=== PATIENT | male | born 1960 | race Caucasian/White ===

== ENCOUNTER 2019-03-15 08:05 | Inpatient (IN) | payer OTHER ==
[2019-03-15] VITALS (14 sets, daily range): BP systolic 70–109
[~2019-03-15] VITALS: Ht 162.6 cm; Wt 73.9 kg
[2019-03-15] MEDS ORDERED: NACL 0.9% 1,000 ML IV ONE ×2 (08:15→10:15)
--- NOTE | 2019-03-15 08:25 | NUR ---
Patient to ER bed 1 to gown for evaluation. Side rails up. Report given to Sherry KHAN
--- NOTE | 2019-03-15 08:30 | NUR ---
ER at bedside examining patient.
--- NOTE | 2019-03-15 08:30 | NUR ---
Pt arrived by ambulance, hypotensive in field, received one bolus. Hx prsotate CA stage 4, nicolas catheter in place patent and draining. Pt AO4, RR even and unlabored on RA
--- NOTE | 2019-03-15 08:30 | NUR ---
Dr at bedside to assess
[2019-03-15] MEDS ORDERED: fentaNYL CITRATE/PF 100 MCG/2 ML AMP IVP ONE (08:45)
[2019-03-15 08:47] LABS: BASOPHILS % (AUTO) 0.5 % (0.0-2.0); EOSINOPHILS % (AUTO) 0.3 % (0.0-4.0); HEMOGLOBIN 7.4 g/dL (14.0-18.0); LYMPHOCYTES # (AUTO) 0.6 K/uL (1.0-5.5); LYMPHOCYTES % (AUTO) 7.4 % (20.5-51.5); MEAN CORPUSCULAR HEMOGLOBIN 31 pg (27-31); MEAN CORPUSCULAR HGB CONC 34 % (32-36); MEAN CORPUSCULAR VOLUME 91 fL (79.0-98.0); MONOCYTES # (AUTO) 0.4 K/uL (0.0-1.0); NEUTROPHILS # (AUTO) 7.5 K/uL (1.8-7.7); NEUTROPHILS % (AUTO) 86.8 % (40.0-70.0); RED CELL DISTRIBUTION WIDTH 15.4 % (9.0-15.0); WHITE BLOOD COUNT (AUTO) 8.7 K/uL (4.8-10.8)
[2019-03-15 08:51] LABS: CALCIUM 7.8 mg/dL (8.4-11.0); CREATININE 0.93 mg/dL (0.55-1.30); POTASSIUM 3.8 mmol/L (3.5-5.1)
[2019-03-15 08:57] LABS: HEMATOCRIT 21.9 % (36-54)
--- NOTE | 2019-03-15 09:00 | NUR ---
Patient transported to radiology via gurney, accompanied by radio equipment installer.
[2019-03-15 09:05] LABS: ALBUMIN 2.6 g/dL (3.4-4.8); TOTAL BILIRUBIN 0.6 mg/dL (0.0-1.0)
[2019-03-15 09:09] LABS: BILIRUBIN,URINE 1+ (NEGATIVE); BLOOD, URINE 2+ (NEGATIVE); CLARITY/URINE CLEAR (CLEAR); COLOR,URINE YELLOW (YELLOW); GLUCOSE,URINE NEGATIVE (NEGATIVE); KETONES,URINE NEGATIVE (NEGATIVE); LEUKOCYTE ESTERASE ,URINE TRACE (NEGATIVE); NITRITE, URINE NEGATIVE (NEGATIVE); PH,URINE 5.5 (5.0-8.0); PROTEIN URINE 1+ (NEGATIVE); UROBILINOGEN,URINE 0.2 (0.2-1.0)
[2019-03-15 09:10] LABS: BACTERIA,URINE MODERATE /HPF (None Seen); HYALINE CASTS, URINE 0-10 /LPF (None Seen); MUCUS,URINE 3+ /LPF (None Seen)
[2019-03-15 09:14] LABS: PLATELET COUNT (AUTO) 89 K/uL (130-430)
[2019-03-15] MEDS ORDERED: BACL10TA PO ×2 (09:58)
[2019-03-15] MEDS ORDERED: GABA-531 PO (09:58)
[2019-03-15] MEDS ORDERED: FAMO20TA8 PO (09:58)
[2019-03-15] MEDS ORDERED: SENN-278 PO (09:58)
[2019-03-15] MEDS ORDERED: TAMS-11 PO (09:58)
[2019-03-15] MEDS ORDERED: LISI40TA4 PO (09:58)
[2019-03-15] MEDS ORDERED: DOCU-144 PO (09:58)
--- NOTE | 2019-03-15 09:58 | NUR ---
Medication reconciliation completed with information provided by patient. Any prior medication reconciliation on file was reviewed and corrected.
--- NOTE | 2019-03-15 10:01 | NUR ---
2 L NS infused. Will conitnue to monitor BP.
[2019-03-15] MEDS ORDERED: cefTRIAXone 1 GM IVPB PREMIX 50 ML IV ONE (10:15)
--- NOTE | 2019-03-15 10:20 | NUR ---
Sepsis Protocol Patient received 3l of NS. Rocephin 1gm given.
[2019-03-15] MEDS ORDERED: NOREPINEPHRINE BITARTRATE 4 MG in NS 246 ML IV ONE (10:45)
[2019-03-15 11:14] LABS: PROTHROMBIN TIME > 100.0 SECS (9.5-12.5)
[2019-03-15 11:16] LABS: INR > 9.0 (0.80-1.20)
[2019-03-15] MEDS ORDERED: D5NS 500 ML IV SCH (11:30)
--- NOTE | 2019-03-15 12:07 | NUR ---
Levophed drip initiated at 4mcg/min. Current BP 83/38, map 59, HR 88. Pt will bged transferred to ICU bed 8.
--- NOTE | 2019-03-15 12:15 | NUR ---
Levophed drip increased to 6mcg/min bp 78/39, map 52
--- NOTE | 2019-03-15 12:20 | NUR ---
Patient will be admitted to care of Dr. Billingsley. Admitted to ICU unit. Will go to room 8. Belongings list completed. Complete and up to date summary report printed. Bedside report given to Feliz KHAN. IV is on the left hand 22g patient and infusing well.
--- NOTE | 2019-03-15 12:21 | NUR ---
ADMISSION NOTE Received patient from ER via kim, received report from Sherry KHAN. Patient admitted with diagnosis of Septic Shock. Patient oriented to hospital routine, call light, toileting and safety-patient verbalized understanding. Patient awake, alert and oriented. Patient on room air and saturating within normal limits, no acute signs of resp distress, no SOB, breathing even and unlabored. continue to monitor.
--- NOTE | 2019-03-15 12:50 | NUR ---
PAGED DR. REYES: PAGED DR. REYSE FOR ADMIT ORDERS. AWAITING FOR CALL BACK.
--- NOTE | 2019-03-15 14:15 | NUR ---
Called Dr. Lang with a consult, spoke with Seiln from doctors office
--- NOTE | 2019-03-15 14:29 | NUR ---
Called Dr. Clements with a consult, spoke with Delores from doctors office
[2019-03-15] MEDS ORDERED: HYDROCORTISONE SOD SUCC 100 MG/2 ML VIAL IVP ONE (14:45)
[2019-03-15] MEDS ORDERED: GABAPENTIN 300 MG CAPSULE PO ONE (14:45)
[2019-03-15] MEDS: BACLOFEN 10 MG TABLET PO SCH ×2 (14:50→21:15)
[2019-03-15] MEDS: D5NS 1,000 ML IV SCH (14:51)
[2019-03-15 15:22] LABS: TOTAL IRON BIND. CAPACITY 141 ug/dL (250-450)
[2019-03-15 16:15] LABS: BASOPHILS % (AUTO) 0.6 % (0.0-2.0); EOSINOPHILS % (AUTO) 0.1 % (0.0-4.0); LYMPHOCYTES # (AUTO) 0.9 K/uL (1.0-5.5); LYMPHOCYTES % (AUTO) 11.5 % (20.5-51.5); MEAN CORPUSCULAR HEMOGLOBIN 31 pg (27-31); MEAN CORPUSCULAR HGB CONC 34 % (32-36); MEAN CORPUSCULAR VOLUME 90 fL (79.0-98.0); MONOCYTES # (AUTO) 0.5 K/uL (0.0-1.0); MONOCYTES % (AUTO) 6.1 % (1.7-9.3); NEUTROPHILS # (AUTO) 6.2 K/uL (1.8-7.7); NEUTROPHILS % (AUTO) 81.7 % (40.0-70.0); PLATELET COUNT (AUTO) 92 K/uL (130-430); RED CELL DISTRIBUTION WIDTH 15.5 % (9.0-15.0); WHITE BLOOD COUNT (AUTO) 7.6 K/uL (4.8-10.8)
[2019-03-15] MEDS: PIPERACILLIN/TAZO 3.375/DEX-IS 50 ML IV SCH ×3 (16:38→23:43)
[2019-03-15 16:49] LABS: HEMATOCRIT 16.7 % (36-54); HEMOGLOBIN 5.8 g/dL (14.0-18.0); RED BLOOD CELL COUNT(AUTO) 1.85 MIL/uL (4.2-6.2)
[2019-03-15] MEDS: VANCOMYCIN HCL 750 MG in NS 250 ML IV SCH (17:58)
[2019-03-15] MEDS: NOREPINEPHRINE BITARTRATE 4 MG in D5W 246 ML IV PRN ×3 (18:16→23:42)
--- NOTE | 2019-03-15 18:53 | NUR ---
BT INITIATION: Consent signed per patient agreeing to administration of blood. Blood has been type and crossmatched. Blood sent from blood bank. Information on unit of blood checked against patient wristband at bedside by two nurses. All information matches. Patient or responsible republican informed of potential complications associated with blood transfusion. Informed of possible transfusion reaction symptoms. Aware of need to notify nurse at once of itching, shortness of breath, flushing, feeling of impending doom, or other symptoms not previously present. Vital signs taken within 5 minutes prior to initiation of transfusion. RN will remain with patient for first 15 minutes of transfusion at which time vital signs will be re-assessed. Pre-transfusion vital signs: temp-99.5, pulse -113, RR-22, BP - 94/53. 15mins after starting vital signs: temp: 98.7, pulse 122, RR-19, BP-95/55. denies pain, itching, and no redness noted.
--- NOTE | 2019-03-15 19:10 | NUR ---
OPENING NOTE RECIEVED SBAR REPORT FROM MI KHAN. ASSUMED CARE OF PATIENT.
--- NOTE | 2019-03-15 19:50 | NUR ---
ASSESSMENT PT ANO X4 LAYING IN BED. PT COOPERATIVE. PT ON ROOM AIR, O2 SATURATION 100%. LUNG SOUNDS CLEAR THROUGHOUT. PT SINUS TACH ON MONITOR. NO EDEMA NOTED. RADIAL AND PEDAL PULSES EQUAL AND STRONG. PT HAS LUE PICC LINE. PT HAS LEVOPHED DRIP RUNNING AT 24 MCG/MIN & D5/NS @ 150 ML/HR AND BLOOD TRANSFUSION (120 ML/HR) INFUSING. 2 UNITS ORDERED 1ST UNIT CURRENTLY INFUSING. PT TOLERATING BLOOD TRANSFUSION WELL. BOWEL SOUNDS ACTIVE. PT ON REGULAR DIET. APONTE CATHETER FLOWING TO GRAVITY IN PLACE. URINE CLEAR AND YELLOW. SKIN INTACT. FAMILY AT BEDSIDE. BED LOCKED IN LOWEST POSITION. CALL LIGHT WITHIN REACH. SAFETY PRECAUTIONS IN PLACE. WILL CONTINUE TO MONITOR.
[2019-03-15] MEDS: ACETAMINOPHEN 325 MG TABLET PO PRN (19:53)
[2019-03-15 21:00] LABS: PROTHROMBIN TIME 52.2 SECS (9.5-12.5)
--- NOTE | 2019-03-15 21:00 | NUR ---
RN UPDATE DRESSING CHANGED AT RIGHT AC. ACTIVE BLEEDING NOTED TO SITE. PRESSURE DRESSING APPLIED AND WILL CONTINUE TO MONITOR.
[2019-03-15] MEDS: HYDROCORTISONE SOD SUCC 100 MG/2 ML VIAL IVP SCH (21:16)
--- NOTE | 2019-03-15 21:28 | NUR ---
BLOOD TRANSFUSION 1 UNIT OF BLOOD INFUSED. PT TOLERATED TRANSFUSION WELL. NO SIGNS OR SYMPTOMS OF REACTION NOTED. WILL BEGIN 2ND UNIT ORDERED.
--- NOTE | 2019-03-15 21:46 | NUR ---
BT INITIATION: Consent signed per patient agreeing to administration of blood. Blood has been type and crossmatched. Blood sent from blood bank. Information on unit of blood checked against patient wristband at bedside by two nurses. All information matches. Patient or responsible libertarian informed of potential complications associated with blood transfusion. Informed of possible transfusion reaction symptoms. Aware of need to notify nurse at once of itching, shortness of breath, flushing, feeling of impending doom, or other symptoms not previously present. Vital signs taken within 5 minutes prior to initiation of transfusion. RN will remain with patient for first 15 minutes of transfusion at which time vital signs will be re-assessed.
--- NOTE | 2019-03-15 22:30 | NUR ---
ROSALIND FROM LAB. CALLED THAT THEY ARE UNABLE TO DO FIBRINOGEN BECAUSE THE READING IS HIGH AND OUR MACHINE CANT READ IT.WILL SEND IT OUT TO ANOTHER HOSP BUT HAD TO DRAW A FRESH SPECIMEN.WILL OBTAIN SPECIMEN AFTER THE BLOOD TRANSFUSION IS COMPLETED.
--- NOTE | 2019-03-15 23:00 | NUR ---
RN UPDATE PT BLEEDING FROM PICC LINE INSERTION SITE. PRESSURE DRESSING APPLIED. WILL CONTINUE TO MONITOR.
--- NOTE | 2019-03-15 23:48 | NUR ---
BLOOD TRANSFUSION 2 UNIT OF BLOOD INFUSION COMPLETE. NO SIGNS OR SYMPTOMS OF REACTION NOTED. PT TOLERATED INFUSION WELL. WILL CONTINUE TO MONITOR.
[2019-03-16] VITALS (24 sets, daily range): BP systolic 85–139
[2019-03-16] MEDS: D5NS 1,000 ML IV SCH ×2 (00:14→03:35)
[2019-03-16] MEDS ORDERED: NOREPINEPHRINE 4 MG/4 ML VIAL IV ONE ×3 (00:49→09:29)
[2019-03-16] MEDS: MORPHINE 2 MG/ML INJ. SYRINGE IVP PRN (01:07)
[2019-03-16] MEDS: NOREPINEPHRINE BITARTRATE 4 MG in D5W 246 ML IV PRN ×2 (02:08→06:10)
[2019-03-16] MEDS: MORPHINE 4 MG/ML INJ. SYRINGE IVP PRN ×2 (02:10→06:08)
--- NOTE | 2019-03-16 03:00 | NUR ---
RN UPDATE DRESSING SOILED. DRESSING CHANGED AT RIGHT AC. ACTIVE BLEEDING NOTED TO SITE. PRESSURE DRESSING APPLIED AND WILL CONTINUE TO MONITOR.
[2019-03-16] MEDS: VANCOMYCIN HCL 750 MG in NS 250 ML IV SCH ×2 (05:02→17:11)
[2019-03-16] MEDS: PIPERACILLIN/TAZO 3.375/DEX-IS 50 ML IV SCH ×4 (05:03→23:00)
[2019-03-16] MEDS: HYDROCORTISONE SOD SUCC 100 MG/2 ML VIAL IVP SCH ×3 (06:07→22:58)
[2019-03-16 06:19] LABS: BASOPHILS % (AUTO) 0.3 % (0.0-2.0); LYMPHOCYTES # (AUTO) 1.1 K/uL (1.0-5.5); LYMPHOCYTES % (AUTO) 11.6 % (20.5-51.5); MEAN CORPUSCULAR HEMOGLOBIN 30 pg (27-31); MEAN CORPUSCULAR HGB CONC 35 % (32-36); MEAN CORPUSCULAR VOLUME 88 fL (79.0-98.0); MONOCYTES # (AUTO) 0.5 K/uL (0.0-1.0); MONOCYTES % (AUTO) 5.7 % (1.7-9.3); NEUTROPHILS # (AUTO) 7.8 K/uL (1.8-7.7); NEUTROPHILS % (AUTO) 82.4 % (40.0-70.0); RED BLOOD CELL COUNT(AUTO) 2.18 MIL/uL (4.2-6.2); RED CELL DISTRIBUTION WIDTH 15.1 % (9.0-15.0); WHITE BLOOD COUNT (AUTO) 9.4 K/uL (4.8-10.8)
[2019-03-16 06:28] LABS: HEMATOCRIT 19.2 % (36-54); HEMOGLOBIN 6.6 g/dL (14.0-18.0)
--- NOTE | 2019-03-16 06:29 | NUR ---
DR. FLORIN VALENZUELA PAGED AT THIS TIME TO REPORT CRITICAL RESULTS. PER EXCHANGE DR. SHELDON IS NEWS DEPARTMENT INTERN. WILL AWAIT MD CALL BACK. SPOKE WITH LORENA.
[2019-03-16 06:40] LABS: ALBUMIN 2.1 g/dL (3.4-4.8); CREATININE 0.73 mg/dL (0.55-1.30); TOTAL BILIRUBIN 0.6 mg/dL (0.0-1.0)
[2019-03-16 06:56] LABS: INR 3.4 (0.80-1.20); PROTHROMBIN TIME 33.4 SECS (9.5-12.5)
--- NOTE | 2019-03-16 07:14 | NUR ---
MD BECKA VALENZUELA AT [facility] TO EVALUATE PATIENT. MADE AWARE OF CRITICAL LABS. ORDERS RECEIVED. ORDERS TO BE CARRIED OUT PER .
--- NOTE | 2019-03-16 07:24 | NUR ---
CLOSING NOTE SBAR REPORT GIVEN TO MARQUITA RN AND ANISA RN. PT IN NO APPARENT DISTRESS. CARE ENDORSED.
[2019-03-16 07:26] LABS: CALCIUM 6.8 mg/dL (8.4-11.0)
[2019-03-16] MEDS: GABAPENTIN 300 MG CAPSULE PO SCH (08:16)
[2019-03-16] MEDS: TAMSULOSIN HCL 0.4 MG CAP PO SCH (08:16)
[2019-03-16] MEDS: BACLOFEN 10 MG TABLET PO SCH ×3 (08:17→20:20)
--- NOTE | 2019-03-16 08:37 | NUR ---
AT 0710 A.M, RECEIVED NURSING REPORT FROM HORSE BREEDER SASKIA Araya AND JOHN Araya, AT 0713 A.M, SEE PATIENT, ORDERED GIVE BLOOD TRANSFUSION P-RBC 2 UNITS AND CRYOPRECIPITATE 10 UNITS TODAY, AT 0830 A.M, PAGE Dr. REYES REGARDING OF ORDER, ( B.S [phone] ) , WAITING FOR DOCTOR CALL BACK
[2019-03-16] MEDS ORDERED: NOREPINEPHRINE BITARTRATE 4 MG in NS 250 ML IV PRN (09:00)
[2019-03-16] MEDS ORDERED: NOREPINEPHRINE BITARTRATE 4 MG in NS 246 ML IV PRN (09:00)
--- NOTE | 2019-03-16 09:00 | NUR ---
AT 0900 A.M, SEE PATIENT, AND UPDATED PATIENT,S CONDITION AT BEDSIDE WITH PATIENT AND FAMILY (SISTER), ORDERED CHANGED IVF TO 0.9% NORMAL SALINE AT 100 ML/HOUR AND LEVOPHED DRIP 8 MG IN NORMAL SALINE , ON PHENYLEPHRINE DRIP NEED
[2019-03-16] MEDS ORDERED: COMMUNICATION ORDER XX ONE (09:15)
[2019-03-16] MEDS: NACL 0.9% 1,000 ML IV SCH ×2 (09:18→20:20)
[2019-03-16] MEDS: NOREPINEPHRINE BITARTRATE 8 MG in NS 242 ML IV PRN (09:21)
--- NOTE | 2019-03-16 09:41 | NUR ---
Nutrition Update Ugo Scale 16 noted. Pt admitted for septic shock. Diet: regular BMI: 28 kg/m2 RD to follow per nutrition care standards.
--- NOTE | 2019-03-16 10:20 | NUR ---
AT 1000 A.M, ORDERED FOLLOW UP 2D ECHO CARDIOGRAM, E.F 73 %
[2019-03-16 10:54] LABS: PLATELET COUNT (AUTO) 52 K/uL (130-430)
[2019-03-16] MEDS: ACETAMINOPHEN 325 MG TABLET PO PRN (11:13)
--- NOTE | 2019-03-16 12:00 | NUR ---
AT 1052A.M, START BLOOD TRANSFUSION CRYOPRECIPITATE FIRST 5 UNITS, AT 1150 A.M, FINISHED, NO S/S OF ADVERSE REACTION
--- NOTE | 2019-03-16 12:07 | NUR ---
AT 1155 A.M, START BLOOD TRANSFUSION CRYOPRECIPITATE SECOND 5 UNITS, NO S/S OF ADVERSE REACTION AT THIS TIME, PATIENT IS ALERT, ORIENTED X4, GIVE CLEAN ,COMFORTABLE SUPPORT ALL TIMES, RAILS UP ,CALL LIGHT IN REACH, KEEP CLOSE MONITOR
--- NOTE | 2019-03-16 13:26 | NUR ---
AT 1245 P.M, FINISHED BLOOD TRANSFUSION CRYOPRECIPITATE SECOND 5 UNITS, NO S/S OF ADVERSE REACTION, AT 1315 P.M, START BLOOD TRANSFUSION P-RBC FIRST UNIT, NO S/S OF ADVERSE REACTION AT THIS TIME, KEEP CLOSE MONITOR
--- NOTE | 2019-03-16 14:00 | NUR ---
TITRATING O2 DR POPE AWARE AND ACKNOWLEDGED CHANGES MADE ON O2 DELIVERY. PATIENT PLACED ON OXYMIZER 5 LITERS SINCE WAS NOT TOLERATING 4L WITH LOWER SATS OF 89%. DR POPE AGREED.
--- NOTE | 2019-03-16 15:20 | NUR ---
GIVE RIGHT A.C BLEEDING AREA DRESSING CHANGED, CHG BED BATH DONE
--- NOTE | 2019-03-16 16:40 | NUR ---
AT 1545 P.M, FINISHED BLOOD TRANSFUSION P-RBC FIRST UNIT, NO S/S OF ADVERSE REACTION
--- NOTE | 2019-03-16 16:41 | NUR ---
AT 1600 P.M, START BLOOD TRANSFUSION P-RBC SECOND UNIT, NO S/S OF ADVERSE REACTION, KEEP CLOSE MONITOR
[2019-03-16] MEDS ORDERED: PHENYLEPHRINE HCL 30 MG in NS 247 ML IV PRN (17:30)
--- NOTE | 2019-03-16 17:30 | NUR ---
Dietitian Recommendations * Recommend Regular diet with Ensure Enlive TID for optimal nutrition (Provides additional 1050 kcal/day and 60 gm of protein/day) * Encourage PO intake LP, RD Please refer to Nutrition Assessment for details. Signed: 03/16/19 at 1731 by Thais SANTAMARIA <Co-Signature Required> Co-Signed: 03/16/19 at [address] Addendum: 03/16/19 at 1732 by Thais SANTAMARIA Amended: Links added.
--- NOTE | 2019-03-16 18:51 | NUR ---
AT 1845 P.M, FINISHED BLOOD TRANSFUSION P-RBC SECOND UNIT, NO S/S OF ADVERSE REACTION, PATIENT IS ALERT, ORIENTED X4 COMFORTABLE REST ON THE BED AT THIS TIME, RAILS UP ,LEVOPHED DRIP TITRATED TO 8 MCG/MIN, CALL LIGHT IN REACH, KEEP CLOSE MONITOR
--- NOTE | 2019-03-16 19:14 | NUR ---
GIVE COMPLETE NURSING REPORT TO SCOREBOARD OPERATOR NIALL Araya
--- NOTE | 2019-03-16 19:45 | NUR ---
Opening Note Pt in bed AAO. SR on the monitor, on RA. No s/s of distress noted. Pt has MOISES PICC line in place running IVF and Levophed (double concentration) @8mcg/kg/min. BP stable at this time. IV site C/D/I. No s/s of infiltration noted. Pt has nicolas catheter in place draining urine to gravity. Pt has dressing to BROCK for earlier bleeding. No s/s of bleeding noted at this time. Bed locked in lowest position, call light in reach, and safety precautions in place. Daughter at bedside. Will continue to monitor.
--- NOTE | 2019-03-16 20:15 | NUR ---
BROCK dressing changed d/t bleeding at venipuncture site. Dressing wrapped, and no s/s of bleeding noted at this time. Will continue to monitor.
--- NOTE | 2019-03-16 23:05 | NUR ---
RN Round New pressure dressing applied to Pt BROCK. Current dressing saturated with blood from venipuncture site. Pt tolerated well. No s/s or c/o of pain. Levophed currently @12mcg/kg/min. Will continue to monitor.
[2019-03-17] VITALS (24 sets, daily range): BP systolic 85–138
[2019-03-17] MEDS: MORPHINE 2 MG/ML INJ. SYRINGE IVP PRN ×2 (00:39→05:58)
--- NOTE | 2019-03-17 03:08 | NUR ---
RN Rounds Pt in bed asleep. No s/s of distress noted. Levophed infusing @12mcg/kg/min. VSS. Will continue to monitor.
[2019-03-17] MEDS: VANCOMYCIN HCL 750 MG in NS 250 ML IV SCH ×2 (04:17→16:10)
--- NOTE | 2019-03-17 05:34 | NUR ---
RN Rounds Pt VSS. No s/s of distress noted. Pt able to make needs known. Will continue to monitor.
[2019-03-17] MEDS: NACL 0.9% 1,000 ML IV SCH ×2 (05:57→15:00)
[2019-03-17] MEDS: PIPERACILLIN/TAZO 3.375/DEX-IS 50 ML IV SCH ×4 (05:58→23:49)
[2019-03-17] MEDS: HYDROCORTISONE SOD SUCC 100 MG/2 ML VIAL IVP SCH ×3 (05:58→21:58)
[2019-03-17] MEDS: NOREPINEPHRINE BITARTRATE 8 MG in NS 242 ML IV PRN (05:59)
--- NOTE | 2019-03-17 06:51 | NUR ---
Closing Note Pt in bed AAO. ST on the monitor, on RA. No s/s of distress noted. Pt has IVF infusing and Levophed running at 12mcg/kg/min. No s/s of infiltration noted. Pt has nicolas catheter draining urine to gravity. No bleeding noted from BROCK venipuncture site. Dressing remains C/D/I. Bed locked in lowest position, call light in reach, and safety precautions in place. Will endorse to oncoming RN.
--- NOTE | 2019-03-17 07:07 | NUR ---
Endorsement Pt report given to oncoming RN at bedside via SBAR approach.
[2019-03-17 07:10] LABS: BASOPHILS % (AUTO) 0.1 % (0.0-2.0); EOSINOPHILS % (AUTO) 0.1 % (0.0-4.0); MEAN CORPUSCULAR HEMOGLOBIN 30 pg (27-31); MEAN CORPUSCULAR HGB CONC 35 % (32-36); MEAN CORPUSCULAR VOLUME 86 fL (79.0-98.0); MONOCYTES # (AUTO) 0.8 K/uL (0.0-1.0); MONOCYTES % (AUTO) 6.5 % (1.7-9.3); NEUTROPHILS # (AUTO) 10.7 K/uL (1.8-7.7); NEUTROPHILS % (AUTO) 85.3 % (40.0-70.0); RED CELL DISTRIBUTION WIDTH 14.9 % (9.0-15.0); WHITE BLOOD COUNT (AUTO) 12.5 K/uL (4.8-10.8)
--- NOTE | 2019-03-17 07:20 | NUR ---
AT 0707 A.M, RECEIVED NURSING REPORT FROM PROFILE GRINDERVIVEK TIERNEY R.N
[2019-03-17 07:26] LABS: RED BLOOD CELL COUNT(AUTO) 1.75 MIL/uL (4.2-6.2)
[2019-03-17 07:27] LABS: HEMOGLOBIN 5.2 g/dL (14.0-18.0); INR 3.2 (0.80-1.20)
[2019-03-17 07:28] LABS: HEMATOCRIT 15.1 % (36-54); PLATELET COUNT (AUTO) 34 K/uL (130-430)
[2019-03-17 07:31] LABS: PROTHROMBIN TIME 31.1 SECS (9.5-12.5)
[2019-03-17 07:32] LABS: CREATININE 0.51 mg/dL (0.55-1.30); POTASSIUM 3.6 mmol/L (3.5-5.1); TOTAL BILIRUBIN 0.9 mg/dL (0.0-1.0)
[2019-03-17 07:34] LABS: CALCIUM 6.7 mg/dL (8.4-11.0)
[2019-03-17] MEDS: GABAPENTIN 300 MG CAPSULE PO SCH (08:19)
[2019-03-17] MEDS: TAMSULOSIN HCL 0.4 MG CAP PO SCH (08:19)
[2019-03-17] MEDS: BACLOFEN 10 MG TABLET PO SCH ×3 (08:19→20:41)
[2019-03-17] MEDS ORDERED: PHYTONADIONE 10 MG/ML AMP SUBCUT ONE (09:15)
[2019-03-17] MEDS: ONDANSETRON HCL 4 MG/2 ML VIAL IVP PRN (09:23)
--- NOTE | 2019-03-17 09:30 | NUR ---
AT 0900 A.M, Dr. VAZQUEZ SEE PATIENT, ORDERED GIVE STAT VITS K 10 MG SUBQ X ONCE AND BLOOD TRANSFUSION 4 PACKS P-RBC AND 2 FRESH FROZEN PLASMA FOR H.b 5.2, Hct 15.1 ,PLATELET 34, PT 31.1, INR 3.2, PTT 42.6
[2019-03-17] MEDS ORDERED: PHYTONADIONE 10 MG/ML AMP ONE (09:55)
[2019-03-17] MEDS: METOCLOPRAMIDE HCL 10 MG/2 ML VIAL IVP PRN (11:21)
--- NOTE | 2019-03-17 13:20 | NUR ---
AT 1103 A.M, START BLOOD TRANSFUSION P-RBC FIRST UNIT, AND 1315 P.M FINISHED, NO S/S OF ADVERSE REACTION
[2019-03-17] MEDS ORDERED: FUROSEMIDE 40 MG/4 ML VIAL IVP ONE (15:00)
--- NOTE | 2019-03-17 15:34 | NUR ---
AT 1326 P.M START BLOOD TRANSFUSION P-RBC SECOND UNIT, AT 1505 P.M, FINISHED, NO S/S OF ADVERSE REACTION
[2019-03-17] MEDS: ACETAMINOPHEN 325 MG TABLET PO PRN (16:10)
--- NOTE | 2019-03-17 17:00 | NUR ---
AT 1525 P.M, START BLOOD TRANSFUSION P-RBC THIRD UNIT, AT 1655 P.M FINISHED, NO S/S OF ADVERSE REACTION
--- NOTE | 2019-03-17 17:37 | NUR ---
AT 1713 P.M, START BLOOD TRANSFUSION P-RBC FOURTH UNIT, NO S/S OF ADVERSE REACTION AT THIS TIME, PATIENT IS ALERT, ORIENTED X 4, SLEEPING NOW, CALL LIGHT IN REACH, KEEP CLEAN, COMFORTABLE SUPPORT ALL TIMES
--- NOTE | 2019-03-17 19:25 | NUR ---
AT 1925 P.M, FINISHED BLOOD TRANSFUSION P-RBC FOURTH UNIT, NO S/S OF ADVERSE REACTION, GIVE COMPLETE NURSING REPORT TO HOTEL ENGINEER JOANNE Araya
[2019-03-17 20:54] LABS: BASOPHILS % (AUTO) 0.1 % (0.0-2.0); EOSINOPHILS % (AUTO) 0.1 % (0.0-4.0); HEMATOCRIT 31.8 % (36-54); HEMOGLOBIN 10.9 g/dL (14.0-18.0); LYMPHOCYTES # (AUTO) 0.9 K/uL (1.0-5.5); LYMPHOCYTES % (AUTO) 7.1 % (20.5-51.5); MEAN CORPUSCULAR HEMOGLOBIN 30 pg (27-31); MEAN CORPUSCULAR HGB CONC 34 % (32-36); MEAN CORPUSCULAR VOLUME 87 fL (79.0-98.0); NEUTROPHILS # (AUTO) 10.5 K/uL (1.8-7.7); NEUTROPHILS % (AUTO) 84.7 % (40.0-70.0); RED BLOOD CELL COUNT(AUTO) 3.64 MIL/uL (4.2-6.2); RED CELL DISTRIBUTION WIDTH 14.2 % (9.0-15.0); WHITE BLOOD COUNT (AUTO) 12.4 K/uL (4.8-10.8)
[2019-03-17 21:01] LABS: PLATELET COUNT (AUTO) 25 K/uL (130-430)
[2019-03-18] VITALS (21 sets, daily range): BP systolic 114–162
[2019-03-18] MEDS: VANCOMYCIN HCL 750 MG in NS 250 ML IV SCH ×2 (04:35→16:05)
[2019-03-18] MEDS: NACL 0.9% 1,000 ML IV SCH ×2 (04:37→12:17)
[2019-03-18] MEDS: HYDROCORTISONE SOD SUCC 100 MG/2 ML VIAL IVP SCH ×3 (06:30→21:45)
[2019-03-18] MEDS: PIPERACILLIN/TAZO 3.375/DEX-IS 50 ML IV SCH ×3 (06:32→17:28)
[2019-03-18 07:09] LABS: HEMATOCRIT 25.8 % (36-54); HEMOGLOBIN 9.1 g/dL (14.0-18.0); RETICULOCYTE COUNT 2.3 % (0.5-1.5)
[2019-03-18 07:16] LABS: MEAN CORPUSCULAR HEMOGLOBIN 30 pg (27-31); MEAN CORPUSCULAR HGB CONC 35 % (32-36); MEAN CORPUSCULAR VOLUME 86 fL (79.0-98.0); RED BLOOD CELL COUNT(AUTO) 3.01 MIL/uL (4.2-6.2); RED CELL DISTRIBUTION WIDTH 14.6 % (9.0-15.0); WHITE BLOOD COUNT (AUTO) 9.2 K/uL (4.8-10.8)
--- NOTE | 2019-03-18 07:16 | NUR ---
RECEIVE NURSING REPORT FROM WAREHOUSE TRAINERVIVEK RUBIO R.N
[2019-03-18 07:45] LABS: ALBUMIN 2.2 g/dL (3.4-4.8); CALCIUM 7.5 mg/dL (8.4-11.0); CREATININE 0.52 mg/dL (0.55-1.30); PLATELET COUNT (AUTO) 18 K/uL (130-430); POTASSIUM 3.2 mmol/L (3.5-5.1); TOTAL BILIRUBIN 0.9 mg/dL (0.0-1.0)
[2019-03-18 07:47] LABS: ATYPICAL LYMPHOCYTES % 0 % (0-0); BAND % (MANUAL) 1 % (0-6); BASOPHILS % (MANUAL) 0 % (0-2); EOSINOPHILS % (MANUAL) 0 % (0-7); LYMPHOCYTES % (MANUAL) 2 % (20-46); METAMYELOCYTES % 2 % (0-0); MONOCYTES % (MANUAL) 10 % (0-11)
--- NOTE | 2019-03-18 08:27 | NUR ---
LAB RESULT: PLATELET 18, ORDERED GIVE BLOOD TRANSFUSION PLATELET ONE UNIT
[2019-03-18] MEDS ORDERED: KCL 40 mEq in 100 mL (PREMIX) 100 ML IV ONE (08:45)
--- NOTE | 2019-03-18 09:00 | NUR ---
AT 0845 A.M, Dr. VAZQUEZ SEE PATIENT, AND UPDATED PATIENT,S CONDITION WITH FAMILY AT BEDSIDE, ORDERED GIVE STAT LASIX 40 MG IVP, K-RIDER 40 ALICE IVPB X ONCE, AND FOLLOW UP LUMBAR SPINE, THORACIC SPINE TOMORROW / WHEN PATIENT IS STABLE CONDITION
[2019-03-18] MEDS ORDERED: PHYTONADIONE 10 MG/ML AMP SUBCUT ONE ×2 (09:15→09:30)
[2019-03-18] MEDS ORDERED: FUROSEMIDE 40 MG/4 ML VIAL IVP ONE ×2 (09:15→15:45)
[2019-03-18 09:21] LABS: INR 1.4 (0.80-1.20); PROTHROMBIN TIME 14.3 SECS (9.5-12.5)
[2019-03-18] MEDS ORDERED: FUROSEMIDE 40 MG TABLET PO ONE (09:30)
[2019-03-18] MEDS: GABAPENTIN 300 MG CAPSULE PO SCH (09:36)
[2019-03-18] MEDS: BACLOFEN 10 MG TABLET PO SCH ×3 (09:36→20:52)
[2019-03-18] MEDS: TAMSULOSIN HCL 0.4 MG CAP PO SCH (09:36)
[2019-03-18] MEDS: ACETAMINOPHEN 325 MG TABLET PO PRN (12:03)
--- NOTE | 2019-03-18 13:01 | NUR ---
AT 1155 P.M, Dr. POPE SEE PATIENT, ORDERED GIVE BLOOD TRANSFUSION CRYOPRECIPITATE 10 UNITS
--- NOTE | 2019-03-18 14:37 | NUR ---
WAS CALLING 3 TIMES FOR REPORT OF LAB RESULT, BUT NO ANYONE BUYER TOBACCO HEAD ANSWER THE PHONE CALL
--- NOTE | 2019-03-18 15:04 | NUR ---
Blood Bank Picked up platelet phoresis unit and total volume 860cc for pooled platelets. Double checked product and volume with Stuart in blood bank. They indicated that sometimes this happens and the volume is large and they do not know why.
--- NOTE | 2019-03-18 15:06 | NUR ---
Dr Lang. Attempted to notifiy hematology Dr. Edwards OC for Dr. Barajas and the phone just rings and rings and no one answers. Tried several times. Spoke With Dr. Lang regarding volume of platelet pack being 860cc. Orders left for lasix 40 mg IVP in between bags. Message relayed to bedside RN.
--- NOTE | 2019-03-18 15:25 | NUR ---
Nutrition Follow Up RD reviewed pt's current EMR including diet Hx, physician notes, nursing notes, pertinent labs/meds/procedures, care trends and care activity. Admitting Diagnosis: Septic shock Medical History Comment: Levophed weaned off, s/p Vit K repletion, oncology to follow up for metastatic prostate cancer per MD note. Current Diet Order/Nutrition Support: Regular diet + Ensure Enlive TID x1 day PO intake: 40% x 1 meal Subjective Information: Pt eating lunch upon RD interview. Bottles of Powerade at bedside. Pt reports improving appetite, no c/o with current texture. No n/v/d. Pt reports taste buds have altered, does not like Ensure Enlive with meals, but open to trying Ensure Clear with meals. RD notified RN. Estimated Energy Expenditure (kcals/day) 8179-9034 kcal/day (30-35 kcal/kg ABW for sepsis) Estimated Protein Required (g/day) 95-126 gm/day (1.5-2 gm/kg ABW for sepsis) Estimated Fluid Required (l/day) 1.9-2.2 L/day (1 mL/kcal/day maintenance) Problem/Etiology/Signs/Symptoms Increased nutritional needs related to catabolic condition as evidenced by estimated energy needs for sepsis. *ongoing* Expected Outcomes/Goals - Monitor appetite and PO intake w/ goals of pt meeting at least 65% of estimated energy needs, labs trending WNL, normal GI function, and wt maintenance/ skin integrity. Dietitian Recommendations * Continue Regular diet * Ensure Clear TID for optimal nutrition * Provides additional 200 kcal and 10 gm of protein per serving * Encourage PO intake Follow Up High Risk: F/U in 2-3days
--- NOTE | 2019-03-18 15:31 | NUR ---
Dietitian Recommendations * Continue Regular diet * Ensure Clear TID for optimal nutrition * Provides additional 200 kcal and 10 gm of protein per serving * Encourage PO intake Please see Nutrition Follow Up for further details. LT, RD
--- NOTE | 2019-03-18 17:30 | NUR ---
AT 1720 P.M, FINISHED BLOOD TRANSFUSION PLATELET ONE UNIT, NO S/S OF ADVERSE REACTION
--- NOTE | 2019-03-18 18:27 | NUR ---
AT 1815 P.M START BLOOD TRANSFUSION CRYOPRECIPITATE FIRST 5 UNITS, NO S/S OF ADVERSE REACTION AT THIS TIMES, KEEP CLOSE MONITOR
--- NOTE | 2019-03-18 18:49 | NUR ---
AT 1845 P.M, FINISHED BLOOD TRANSFUSION NO S/S OF ADVERSE REACTION
--- NOTE | 2019-03-18 19:10 | NUR ---
GIVE COMPLETE NURSING REPORT TO CHEMICAL PREPARERVIVEK RUBIO R.N
[2019-03-19] VITALS (22 sets, daily range): BP systolic 112–154
[2019-03-19] MEDS: NACL 0.9% 1,000 ML IV SCH ×3 (00:12→16:49)
[2019-03-19] MEDS: PIPERACILLIN/TAZO 3.375/DEX-IS 50 ML IV SCH ×5 (00:13→23:53)
[2019-03-19] MEDS: ACETAMINOPHEN 325 MG TABLET PO PRN ×3 (00:25→06:48)
[2019-03-19] MEDS: VANCOMYCIN HCL 1,000 MG in NS 250 ML IV SCH ×2 (04:40→16:47)
[2019-03-19 05:52] LABS: BASOPHILS % (AUTO) 0.1 % (0.0-2.0); EOSINOPHILS % (AUTO) 0.1 % (0.0-4.0); HEMOGLOBIN 7.2 g/dL (14.0-18.0); LYMPHOCYTES # (AUTO) 0.4 K/uL (1.0-5.5); MEAN CORPUSCULAR HEMOGLOBIN 30 pg (27-31); MEAN CORPUSCULAR HGB CONC 35 % (32-36); MEAN CORPUSCULAR VOLUME 87 fL (79.0-98.0); MONOCYTES # (AUTO) 0.5 K/uL (0.0-1.0); MONOCYTES % (AUTO) 6.5 % (1.7-9.3); NEUTROPHILS # (AUTO) 6.4 K/uL (1.8-7.7); NEUTROPHILS % (AUTO) 87.3 % (40.0-70.0); RED BLOOD CELL COUNT(AUTO) 2.37 MIL/uL (4.2-6.2); RED CELL DISTRIBUTION WIDTH 14.6 % (9.0-15.0); RETICULOCYTE COUNT 3.5 % (0.5-1.5); WHITE BLOOD COUNT (AUTO) 7.3 K/uL (4.8-10.8)
[2019-03-19 06:08] LABS: ALBUMIN 2.1 g/dL (3.4-4.8); CREATININE 0.58 mg/dL (0.55-1.30); TOTAL BILIRUBIN 1.2 mg/dL (0.0-1.0)
[2019-03-19 06:10] LABS: INR 1.4 (0.80-1.20); PROTHROMBIN TIME 14.1 SECS (9.5-12.5)
[2019-03-19] MEDS: HYDROCORTISONE SOD SUCC 100 MG/2 ML VIAL IVP SCH ×3 (06:13→21:04)
[2019-03-19 06:28] LABS: HEMATOCRIT 20.6 % (36-54)
--- NOTE | 2019-03-19 06:28 | NUR ---
HEMATOCRIT & PLATELET AM Hematocrit & Platelet levels received and reported to nurse.
--- NOTE | 2019-03-19 07:10 | NUR ---
RECEIVED NURSING REPORT FROM ROB RUBIO R.N
[2019-03-19] MEDS: GABAPENTIN 300 MG CAPSULE PO SCH (08:30)
[2019-03-19] MEDS: BACLOFEN 10 MG TABLET PO SCH ×3 (08:31→21:04)
[2019-03-19] MEDS: TAMSULOSIN HCL 0.4 MG CAP PO SCH (08:31)
[2019-03-19] MEDS: DOCUSATE SODIUM 250 MG CAPSULE PO SCH ×2 (08:32→21:04)
--- NOTE | 2019-03-19 09:00 | NUR ---
AT 0850 A.M, Dr. REYES SEE PATIENT AND UPDATED PATIENT,S CONDITION WITH PATIENT AND FAMILY AT BEDSIDE
[2019-03-19] MEDS ORDERED: FUROSEMIDE 40 MG/4 ML VIAL IVP ONE (11:41)
[2019-03-19] MEDS: POTASSIUM CHLORIDE 20 MEQ TAB.PRT.SR PO SCH ×2 (12:09→14:40)
[2019-03-19 12:27] LABS: PLATELET COUNT (AUTO) 48 K/uL (130-430)
--- NOTE | 2019-03-19 15:30 | NUR ---
Spoke with Dr Lang on the phone and informed her we would be transfering pt to the med surg unit. She changed order and would like the patient to remain in the ICU until she sees the patient again in the morning.
--- NOTE | 2019-03-19 17:25 | NUR ---
AT 1505 P.M START BLOOD TRANSFUSION P-RBC FIRST UNIT, AT 1725 FINISHED, NO S/S OF ADVERSE REACTION
--- NOTE | 2019-03-19 18:15 | NUR ---
AT 1800 P.M, START BLOOD TRANSFUSION P-RBC SECOND UNIT, NO S/S OF ADVERSE REACTION AT THIS TIMES, KEEP CLOSE MONITOR
--- NOTE | 2019-03-19 19:38 | NUR ---
GIVE COMPLETE NURSING REPORT TO SCREENER AND BLENDER OPERATORVIVEK LUCAS R.N
--- NOTE | 2019-03-19 19:40 | NUR ---
Dr. Billingsley / Transfer Order Received call from Dr. Billingsley inquiring about why the patient did not get transfered. Explained conversation twice with Dr. Lang. Order left to transfer pt to [facility]. "I checked with Dr. Clements and there is no reason for the patient to be in ICU, there are no pulmonary issues, the patient will always need blood". Transfer order entered in computer and message given to next shift to transfer pt out. outdoor landscape architect will inform the pt.
--- NOTE | 2019-03-19 20:00 | NUR ---
AWAKE, ALERT, ORIENTED X3. IN NO APPARENT DISTRESS. BREATH SOUNDS ESSENTIALLY CLEAR. ON. ON O2 AT 2L/MIN/NC. BOWEL SOUNDS (+). PULSES PALPABLE. SKIN W/D. COLOR SATISFACTORY. HOB UP TO COMFORT. SIDE RAILS UP. CALL LIGHTS WITHIN REACH. 2ND UNIT PRBC INFUSING. SINUS RHYTHM. FAMILY MEMBER AT BEDSIDE.
--- NOTE | 2019-03-19 21:00 | NUR ---
2ND UNIT PRBC ALL INFUSED. NO ADVERSE REACTION. HS CARE.
--- NOTE | 2019-03-19 22:00 | NUR ---
FAMILY MEMBER LEFT FOR HOME. PT GETTING READY TO GO TO BED.
[2019-03-20] VITALS (11 sets, daily range): BP systolic 140–197
--- NOTE | 2019-03-20 | NUR ---
DOZES ON AND OFF. TURNED.
[2019-03-20 01:06] LABS: % FREE PSA >3.1 % (.); FREE PSA >50.00 ng/mL
--- NOTE | 2019-03-20 02:00 | NUR ---
SLEPT INTERMITTENTLY. TOOK SIPS OF GATORADE, WITH 1 NURSE ASSIST. TURNED.
[2019-03-20] MEDS: NACL 0.9% 1,000 ML IV SCH ×2 (02:30→13:00)
--- NOTE | 2019-03-20 04:00 | NUR ---
SLEPT FOR LONG PERIODS OF TIME. VSS. NO COMPLAINTS OFFERED AT THIS TIME. REPOSITIONED.
[2019-03-20] MEDS: VANCOMYCIN HCL 1,000 MG in NS 250 ML IV SCH ×2 (05:00→16:30)
--- NOTE | 2019-03-20 05:00 | NUR ---
1 MODERATE FORMED BROWN STOOL DEFECATED. CLEANED. VIKTORIYA-CARE GIVEN. CHG BATH RENDERED. ORAL CARE, BACK CARE, SKIN CARE DONE. PARTIAL LINEN CHANGE. MINIMAL ASSISTS WITH TURNING. PARKER PROC WELL.
[2019-03-20] MEDS: PIPERACILLIN/TAZO 3.375/DEX-IS 50 ML IV SCH ×2 (05:44→11:05)
[2019-03-20] MEDS: HYDROCORTISONE SOD SUCC 100 MG/2 ML VIAL IVP SCH ×3 (05:45→21:16)
--- NOTE | 2019-03-20 06:00 | NUR ---
UO GOOD. C/O ABDOMINAL DISCOMFORT. REMAINS IN GUARDED CONDITION.
[2019-03-20 06:17] LABS: BASOPHILS % (AUTO) 0.2 % (0.0-2.0); EOSINOPHILS % (AUTO) 0.1 % (0.0-4.0); HEMATOCRIT 28.6 % (36-54); HEMOGLOBIN 9.9 g/dL (14.0-18.0); LYMPHOCYTES # (AUTO) 0.5 K/uL (1.0-5.5); LYMPHOCYTES % (AUTO) 6.5 % (20.5-51.5); MEAN CORPUSCULAR HEMOGLOBIN 31 pg (27-31); MEAN CORPUSCULAR HGB CONC 35 % (32-36); MEAN CORPUSCULAR VOLUME 89 fL (79.0-98.0); MONOCYTES # (AUTO) 0.5 K/uL (0.0-1.0); MONOCYTES % (AUTO) 6.5 % (1.7-9.3); NEUTROPHILS # (AUTO) 7.2 K/uL (1.8-7.7); NEUTROPHILS % (AUTO) 86.7 % (40.0-70.0); RED BLOOD CELL COUNT(AUTO) 3.21 MIL/uL (4.2-6.2); RED CELL DISTRIBUTION WIDTH 14.6 % (9.0-15.0); WHITE BLOOD COUNT (AUTO) 8.3 K/uL (4.8-10.8)
[2019-03-20 06:42] LABS: ALBUMIN 2.3 g/dL (3.4-4.8); CREATININE 0.53 mg/dL (0.55-1.30); POTASSIUM 3.1 mmol/L (3.5-5.1); TOTAL BILIRUBIN 1.3 mg/dL (0.0-1.0)
[2019-03-20 07:17] LABS: PLATELET COUNT (AUTO) 45 K/uL (130-430)
--- NOTE | 2019-03-20 07:25 | NUR ---
Opening Note Received bedside report from endorsing RN for continuation of care. Received patient resting in bed, denies any SOB or pain. No signs or symptoms of acute distress noted. Bed locked in lowest position, bed alarm on, and call light within reach. Fall and safety precautions in place.
--- NOTE | 2019-03-20 08:04 | NUR ---
Dr. Clements at bedside examining patient. New orders received.
[2019-03-20 08:41] LABS: INR 1.5 (0.80-1.20)
[2019-03-20] MEDS: GABAPENTIN 300 MG CAPSULE PO SCH (08:53)
[2019-03-20] MEDS: TAMSULOSIN HCL 0.4 MG CAP PO SCH (08:53)
[2019-03-20] MEDS: DOCUSATE SODIUM 250 MG CAPSULE PO SCH ×2 (08:53→22:00)
[2019-03-20] MEDS: BACLOFEN 10 MG TABLET PO SCH ×3 (08:53→22:00)
[2019-03-20] MEDS: MINERAL OIL 30 ML UDC PO SCH ×3 (09:45→22:00)
--- NOTE | 2019-03-20 09:54 | NUR ---
Dr. Billingsley at bedside examining patient. New orders received.
--- NOTE | 2019-03-20 10:20 | NUR ---
Spoke with patient's sister on the phone, updated on patient status and plan of care. All questions answered clearly and education provided.
--- NOTE | 2019-03-20 12:05 | NUR ---
Patient to MRI via hospital bed, accompanied by oracle technical developer.
--- NOTE | 2019-03-20 13:40 | NUR ---
Patient returns to ICU from MRI department, accompanied by plastics technician.
[2019-03-20] MEDS ORDERED: POTASSIUM CHLORIDE 40 MEQ in NS 250 ML IV ONE (14:45)
--- NOTE | 2019-03-20 15:25 | NUR ---
Dr. Lang in to see patient. New orders received.
--- NOTE | 2019-03-20 15:30 | NUR ---
Transfer to [facility]Surg Patient transferred to [facility]-surg unit room 105-A via hospital bed on oxygen using ACLS protocol. ACLS RN present at all times. No signs or symptoms of acute distress noted. Endorsed bedside report to Anat/Baldomero RNs using SBAR approach for continuation of care.
--- NOTE | 2019-03-20 15:30 | NUR ---
Opening Note Received bedside SBAR report from MATTRESS STRIPPER, patients respirations even and unlabored on 2L nasal canula, patient complaint of pain, educated patient on use and side effects of pain medication, patient refusing PRN pain medications, room close to nurses station, educated patient on use of call light, bed in low and locked position with bed alarm on
--- NOTE | 2019-03-20 15:49 | NUR ---
Paged Physician Paged Dr. Billingsley, awaiting call back.
[2019-03-20] MEDS: ONDANSETRON HCL 4 MG/2 ML VIAL IVP PRN ×2 (15:56→21:16)
--- NOTE | 2019-03-20 16:26 | NUR ---
Spoke with pharmacy Spoke with pharmacist Cody, informed him of patients vancomycin level 10.7, per pharmacist ok to give scheduled vancomycin piggyback
[2019-03-20] MEDS: cloNIDine HCL 0.1 MG TABLET PO ONE ×2 (16:32→16:37)
--- NOTE | 2019-03-20 16:37 | NUR ---
Patient refuse BP medication Educated patient on use and side effects of PRN BP medication, patient refusing PO medication at this time
--- NOTE | 2019-03-20 16:40 | NUR ---
Paged Physician Paged Dr. Billingsley regarding patient refusal of PO blood pressure medication, awaiting call back
--- NOTE | 2019-03-20 16:46 | NUR ---
PAGED PAGED YAEL MEYERS AT [phone] SPOKE WITH ANURADHA.
--- NOTE | 2019-03-20 16:51 | NUR ---
Spoke with Physician Spoke with Dr. Billingsley, informed him that patient is refusing PO medications due to nausea, informed him that zofran was given, per Dr. Billingsley he will enter orders
[2019-03-20] MEDS: ENALAPRILAT DIHYDRATE 1.25 MG/ML VIAL IVP PRN (18:01)
--- NOTE | 2019-03-20 18:30 | NUR ---
RN Rounds Patient in bed resting, respirations even and unlabored on 2L nasal canula, patient reports pain, patient educated on use and side effects of pain medication, patient refusing medication at this time, patients sister at bedside
[2019-03-20] MEDS: cefTRIAXone 2 GM IVPB PREMIX 50 ML IV SCH (19:01)
--- NOTE | 2019-03-20 19:30 | NUR ---
Closing notes Bedside SBAR report given to to cage shift manager RN, patient in bed resting, respirations even and unlabored on 2L nasal canula, Joyce catheter draining to gravity, patients sister at bedside, bed in low and locked position with bed alarm on, call light within reach, endorsed care to cage shift manager RN
--- NOTE | 2019-03-20 20:00 | NUR ---
ASSUMED CARE. RECEIVED ALERT,ORIENTED. AFEBRILE, NOT IN ACUTE DISTRESS. DENIES PAIN BUT VERBALIZED ON AND OFF NAUSEA AND CONSTIPATION. WITH PICC LINE TO THE LEFT UPPER ARM DOUBLE LUMEN PICC LINE INTACT AND PATENT. SA02=97% ON 2 LPM O2 VIA NC. APONTE CATHETER DRAINING HAZY GISSELL URINE. VS STABLE, WILL CONTINUE TO MONITOR. NEEDS ATTENDED.
[2019-03-20] MEDS: hydrALAZINE HCL 20 MG/ML VIAL IVP PRN (21:17)
[2019-03-20] MEDS: BISACODYL 10 MG/SUPPOSITORY RC PRN (21:18)
--- NOTE | 2019-03-20 21:18 | NUR ---
COMPLAINED OF RECURRENCE OF NAUSEA AND VOMITED ABOUT 30 ML OF PREVIOUSLY INGESTED FLUID. ZOFRAN 4 MG IVP ADMINISTERED. HYDRALAZINE 10 MG IVP AND DULCOLAX SUPPOSITORY GIVEN FOR ELEVATED BP (174/96 AND CONSTIPATION RESPECTIVELY. PT. REQUESTED RN TO HOLD OFF ON ALL PO MEDICATIONS UNTIL NAUSEA IS IMPROVED.
--- NOTE | 2019-03-20 22:00 | NUR ---
VERBALIZED RELIEF OF NAUSEA. REFUSED MINERAL OIL. OTHER DUE P.O. MEDICATIONS GIVEN.
[2019-03-21] VITALS (7 sets, daily range): BP systolic 110–178
[2019-03-21] MEDS: ENALAPRILAT DIHYDRATE 1.25 MG/ML VIAL IVP PRN ×3 (00:55→21:23)
--- NOTE | 2019-03-21 00:55 | NUR ---
PT. AWAKE, NOT IN ACUTE DISTRESS. NO PAIN OR DISCOMFORT NOTED. OQ=311/110. VASOTEC 1.25 MG IVP GIVEN. SIDE RAILS UP, CALL LIGHT WITHIN REACH. KEPT WARM AND COMFORTABLE. WILL CONTINUE TO MONITOR. NEEDS ATTENDED.
[2019-03-21] MEDS: METOCLOPRAMIDE HCL 10 MG/2 ML VIAL IVP PRN (02:04)
--- NOTE | 2019-03-21 02:04 | NUR ---
PT. COMPLAINED OF RECURRENCE OF NAUSEA AND VOMITING. ZOFRAN NOT DUE. REGLAN 10 MG IVP GIVEN ORDERED.
[2019-03-21] MEDS: ONDANSETRON HCL 4 MG/2 ML VIAL IVP PRN ×3 (03:16→21:23)
--- NOTE | 2019-03-21 03:16 | NUR ---
COMPLAINED OF ABDOMINAL PAIN (8/10) AND NON-RELIEF OF NAUSEA. REFUSED ANY PAIN MEDICATION. PRN ZOFRAN 4 MG IVP GIVEN REQUESTED.
--- NOTE | 2019-03-21 04:50 | NUR ---
SLEEPING SOUNDLY, NOT IN ANY KIND OF DISTRESS, NO PAIN OR DISCOMFORT NOTED AT THIS TIME. SIDE RAILS UP, CALL LIGHT WITHIN REACH. KEPT WARM AND COMFORTABLE.
[2019-03-21] MEDS: HYDROCORTISONE SOD SUCC 100 MG/2 ML VIAL IVP SCH ×3 (06:49→21:23)
--- NOTE | 2019-03-21 06:55 | NUR ---
DUE MEDICATION GIVEN. BLOOD DRAWN USING ASEPTIC TECHNIQUE FROM PICC LINE AND HANDED OVER TO LAB.TECH FRANC.
[2019-03-21] MEDS: hydrALAZINE HCL 20 MG/ML VIAL IVP PRN ×2 (07:03→13:46)
--- NOTE | 2019-03-21 07:03 | NUR ---
WK=857/100. HYDRALAZINE 100 MG IVP GIVEN.
[2019-03-21 07:07] LABS: BASOPHILS % (AUTO) 0.4 % (0.0-2.0); EOSINOPHILS % (AUTO) 0.1 % (0.0-4.0); HEMATOCRIT 33.4 % (36-54); HEMOGLOBIN 11.4 g/dL (14.0-18.0); LYMPHOCYTES # (AUTO) 0.7 K/uL (1.0-5.5); LYMPHOCYTES % (AUTO) 6.2 % (20.5-51.5); MEAN CORPUSCULAR HEMOGLOBIN 31 pg (27-31); MEAN CORPUSCULAR HGB CONC 34 % (32-36); MEAN CORPUSCULAR VOLUME 89 fL (79.0-98.0); MONOCYTES # (AUTO) 0.5 K/uL (0.0-1.0); MONOCYTES % (AUTO) 4.7 % (1.7-9.3); NEUTROPHILS # (AUTO) 9.7 K/uL (1.8-7.7); NEUTROPHILS % (AUTO) 88.6 % (40.0-70.0); PLATELET COUNT (AUTO) 59 K/uL (130-430); RED BLOOD CELL COUNT(AUTO) 3.75 MIL/uL (4.2-6.2); RED CELL DISTRIBUTION WIDTH 14.7 % (9.0-15.0)
--- NOTE | 2019-03-21 07:16 | NUR ---
ENDORSED CARE TO JUAN DANIEL ARROYO.
--- NOTE | 2019-03-21 07:26 | NUR ---
Opening Note Received bedside SBAR report from retail shift manager RN, patient in bed resting, respirations even and unlabored on 2L nasal canula, Joyce catheter draining to gravity, PICC line saline locked, dressing clean, dry and intact, bed in low and locked position with bed alarm on, call light in reach
[2019-03-21 07:31] LABS: INR 1.2 (0.80-1.20); PROTHROMBIN TIME 11.7 SECS (9.5-12.5)
[2019-03-21 07:39] LABS: ALBUMIN 2.5 g/dL (3.4-4.8); CREATININE 0.48 mg/dL (0.55-1.30); TOTAL BILIRUBIN 1.5 mg/dL (0.0-1.0)
[2019-03-21 07:56] LABS: CALCIUM 6.7 mg/dL (8.4-11.0); POTASSIUM 2.8 mmol/L (3.5-5.1)
--- NOTE | 2019-03-21 08:00 | NUR ---
Page Physician Paged Dr. Owens regarding critical labs, potassium and calcium, awaiting call back
[2019-03-21] MEDS: BISACODYL 10 MG/SUPPOSITORY RC PRN (08:34)
[2019-03-21] MEDS: BACLOFEN 10 MG TABLET PO SCH ×3 (08:36→20:42)
[2019-03-21] MEDS: MINERAL OIL 30 ML UDC PO SCH ×5 (08:36→20:44)
[2019-03-21] MEDS: GABAPENTIN 300 MG CAPSULE PO SCH (08:36)
[2019-03-21] MEDS: TAMSULOSIN HCL 0.4 MG CAP PO SCH (08:37)
[2019-03-21] MEDS: DOCUSATE SODIUM 100 MG CAPSULE PO SCH ×2 (08:42→20:42)
[2019-03-21 09:26] LABS: FIBRINOGEN 95 mg/dL (200-400)
[2019-03-21] MEDS ORDERED: POTASSIUM CHLORIDE 40 MEQ in NS 250 ML IV SCH (09:39)
--- NOTE | 2019-03-21 09:39 | NUR ---
Critical Lab Dr. Analilia saab at nursing station, informed him of critical labs potassium 2.8, calcium 6.7, and fibrinogen 95, no new orders
--- NOTE | 2019-03-21 09:45 | NUR ---
GI consult called: for Dr. Canela (Dr. Nikunj Gastelum monogram maker), regarding abdominal pain, ordered by Dr. Billingsley, spoke with Alysha.
--- NOTE | 2019-03-21 10:00 | NUR ---
Spoke with Physician Informed Dr. Billingsley patient complained of hiccups, per Dr. Billingsley continue to monitor, no additional interventions needed, no new orders
--- NOTE | 2019-03-21 10:00 | NUR ---
RN rounds Patient in bed resting, no acute distress noted, respirations even and unlabored on 2L nasal canula, call light within reach
--- NOTE | 2019-03-21 11:10 | NUR ---
Paged Physician spoke with Dana from radiology, per Dana the MRI and CT machines are not working at this time, paged Dr. Billingsley to inform him, awaiting call back.
[2019-03-21] MEDS ORDERED: D5/0.45 NS 1,000 ML IV SCH (12:00)
--- NOTE | 2019-03-21 12:00 | NUR ---
Incontinent Patient incontinent of bowel, patient cleaned and assisted to reposition, tolerated well, no additional needs at this time
--- NOTE | 2019-03-21 12:09 | NUR ---
Spoke with Physician spoke with Dr. Lang, informed him that IV fluids were discontinued yesterday by Dr. Billingsley due to elevated blood pressure, informed her of current blood pressure 162/99, new fluid orders received, verified with read back.
[2019-03-21] MEDS: D5/0.45 NS 1,000 ML IV SCH (13:37)
--- NOTE | 2019-03-21 14:05 | NUR ---
Incontinent Patient incontinent of bowel, patient cleaned and assisted to reposition, patient tolerated well, no additional needs at this time
--- NOTE | 2019-03-21 16:00 | NUR ---
RN rounds Patient resting in bed, sign above bed stating no BP or blood draw on left or right arm in place
--- NOTE | 2019-03-21 16:28 | NUR ---
Nutrition F/U RD reviewed pt's current EMR including diet Hx, physician notes, nursing notes, pertinent labs/meds/procedures, care trends, and care activity. Admitting Diagnosis: Septic shock Medical History Comment: Levophed weaned off, s/p Vit K repletion, oncology to follow up for metastatic prostate cancer per MD note. Current Diet Order/Nutrition Support: Regular diet, Ensure Enlive TID x4 days Subjective Information: Pt was seen resting in bed w/ at bedside. Pt reported lack of appetite, but was able to tolerate Ensure Clear (apple flavor preferred). Pt was interested in fruit cocktail and pudding w/ meals; RD notified FNS staff. RN reported that pt has no pending plans/procedures, and has had a very low appetite r/t N/V. Per EMR, PO intake records reflect negligible PO intakes: 10% average x5 meals. Estimated Energy Expenditure (kcals/day) 5127-3186 kcal/day (30-35 kcal/kg ABW for sepsis) Estimated Protein Required (g/day) 95-126 gm/day (1.5-2 gm/kg ABW for sepsis) Estimated Fluid Required (l/day) 1.9-2.2 L/day (1 mL/kcal/day maintenance) Problem/Etiology/Signs/Symptoms Increased nutritional needs related to catabolic condition as evidenced by estimated energy needs for sepsis. *ongoing* Expected Outcomes/Goals - Monitor appetite and PO intake w/ goals of pt meeting at least 65% of estimated energy needs, labs trending WNL, normal GI function, and wt maintenance/ skin integrity. Dietitian Recommendations * Recommend regular diet w/ Ensure Clear TID (ONS provides 720 kcal/day, 24 gm protein/day) Follow Up High Risk: F/U in 2-3 days
--- NOTE | 2019-03-21 16:31 | NUR ---
Dietitian Recommendations * Recommend regular diet w/ Ensure Clear TID (ONS provides 720 kcal/day, 24 gm protein/day) LP, RD Please refer to Nutrition F/U for details.
--- NOTE | 2019-03-21 16:43 | NUR ---
Spoke with Physician spoke with Dr. Billingsley, informed him that per radiology CT and MRI machines are not working at this time, per Dr. Billingsley he will call radiology.
--- NOTE | 2019-03-21 16:47 | NUR ---
Spoke with Radiology per Dr. Billingsley CT scan is working, spoke with radiology and asked for them to take patient for CT scan, per radiology they will come to take patient to CT scan, charge master analyst aware.
--- NOTE | 2019-03-21 17:00 | NUR ---
CT Patient taken to CT via gurney, respirations even and unlabored on 2L O2
--- NOTE | 2019-03-21 17:27 | NUR ---
CT Patient brought back from CT via gurney on 2L nasal canula, no signs of acute distress noted, patients sister at bedside
--- NOTE | 2019-03-21 17:50 | NUR ---
Spoke with Physician spoke with Dr. Alfaro, informed him that patient and patients family are requesting that patient be transferred to [facility], patients sister provided information for patients physician at [facility], Dr. Newman , per Dr. Alfaro he called and and left a message, he is awaiting a call back.
--- NOTE | 2019-03-21 17:58 | NUR ---
MD BRIANNE LE CALLED AT SPOKE WITH DR.REZVANI SANTANA FARHAD SPOUTER.
--- NOTE | 2019-03-21 18:14 | NUR ---
Spoke with Physician spoke with Dr. Alfaro, read him results of preliminary report of CT abdomen/pelvis, no new orders received.
[2019-03-21] MEDS: cefTRIAXone 2 GM IVPB PREMIX 50 ML IV SCH (18:37)
--- NOTE | 2019-03-21 19:19 | NUR ---
Closing Note Bedside SBAR report given to lieutenant shift supervisor RN, patient in bed resting, respirations even and unlabored on 2L nasal canula, IV fluids infusing well, no signs of redness or swelling noted, Joyce catheter draining to gravity, bed in low and locked position with bed alarm on, patients family at bedside, call light in reach, endorsed care to lieutenant shift supervisor RN
--- NOTE | 2019-03-21 20:35 | NUR ---
Opening notes Pt awake, alert, no ss distress noted. VSS. Pt denies pain at this time. IVF infusing at ordered rate MOISES PICC line double lumen, good blood return. Joyce catheter draining to gravity with sade urine. Safety maintained. Call light within reach. Bed low, locked, siderails up x3. To monitor.
--- NOTE | 2019-03-21 21:23 | NUR ---
Vasotec IVP Pt's BP 160/91, Vasotec 1.25mg IVP administered as needed. Pt denies any pain. Call light within reach. To monitor.
--- NOTE | 2019-03-22 00:20 | NUR ---
Rounds Pt asleep, easily arousable. Pt on O2 2L via NC , VSS. IVF infusing at ordered rate MOISES PICC line, dressing intact. Call light within easy reach. Bed low, locked, siderails up. To monitor.
[2019-03-22 01:45] VITALS: BP_SYST 149
--- NOTE | 2019-03-22 02:35 | NUR ---
Rounds Pt asleep, respirations even and unlabored. No s/s distress noted. Bed low, locked, siderails up. Call light within easy reach. To monitor.
--- NOTE | 2019-03-22 05:00 | NUR ---
Bowel movement Pt incontinent of large formed BM mix with soft stool. Pericare/skin care provided. Linens changed. Pt repositioned, pillows for support. Call light within easy reach. Safety maintained. To monitor.
[2019-03-22] MEDS: HYDROCORTISONE SOD SUCC 100 MG/2 ML VIAL IVP SCH ×3 (06:20→21:19)
[2019-03-22] MEDS: D5/0.45 NS 1,000 ML IV SCH ×3 (06:21→21:26)
--- NOTE | 2019-03-22 06:29 | NUR ---
Closing notes Pt awake, no s/s distress noted. New bag of IVF administered at ordered rate MOISES PICC line. Lab drawn via PICC line using aseptic technique. Given to dairy laboratory technician in unit. Call light remains within easy reach. Bed low, locked, siderails up. To endorse to AM nurse.
[2019-03-22 07:05] LABS: HEMOGLOBIN 10.1 g/dL (14.0-18.0); MEAN CORPUSCULAR HEMOGLOBIN 31 pg (27-31); MEAN CORPUSCULAR HGB CONC 35 % (32-36); MEAN CORPUSCULAR VOLUME 90 fL (79.0-98.0); PLATELET COUNT (AUTO) 60 K/uL (130-430); RED BLOOD CELL COUNT(AUTO) 3.23 MIL/uL (4.2-6.2); RED CELL DISTRIBUTION WIDTH 14.9 % (9.0-15.0); WHITE BLOOD COUNT (AUTO) 7.2 K/uL (4.8-10.8)
[2019-03-22 07:08] LABS: ALBUMIN 2.3 g/dL (3.4-4.8); CALCIUM 7.5 mg/dL (8.4-11.0); CREATININE 0.47 mg/dL (0.55-1.30); TOTAL BILIRUBIN 1.1 mg/dL (0.0-1.0)
[2019-03-22 07:19] LABS: POTASSIUM 2.7 mmol/L (3.5-5.1)
[2019-03-22 07:22] LABS: INR 1.1 (0.80-1.20); PROTHROMBIN TIME 11.5 SECS (9.5-12.5)
--- NOTE | 2019-03-22 07:30 | NUR ---
Opening note Patient resting in bed at this time, A/ox4, no complaints of pain. PICC line patent, intact, and infusing fluids as ordered. No adverse side effects noted. no infiltration noted. Joyce catheter in place, draining sade colored urine to gravity. On safety and aspiration precautions, HOB kept elevated, 3 food cart attendant rails up, call light within reach. Patient in stable condition. Will continue to monitor.
[2019-03-22] MEDS ORDERED: POTASSIUM CHLORIDE 60 MEQ in NS 500 ML IV ONE (07:45)
[2019-03-22 07:49] LABS: BAND % (MANUAL) 3 % (0-6); BASOPHILS % (MANUAL) 0 % (0-2); EOSINOPHILS % (MANUAL) 0 % (0-7); LYMPHOCYTES % (MANUAL) 4 % (20-46); METAMYELOCYTES % 4 % (0-0); MONOCYTES % (MANUAL) 2 % (0-11)
[2019-03-22 08:00] VITALS: BP_SYST 139
--- NOTE | 2019-03-22 08:19 | NUR ---
ATTENDING MD DR REYES WAS CALLED RE: CRITICAL LABS. SPOKE TO HYACINTH
[2019-03-22] MEDS ORDERED: MINERAL OIL 133 ML ENEMA RC ONE (08:30)
[2019-03-22] MEDS: MINERAL OIL 30 ML UDC PO SCH ×3 (08:54→20:04)
[2019-03-22] MEDS: POLYETHYLENE GLYCOL 3350, 17 GM/ POWD.PACK PO SCH (08:54)
--- NOTE | 2019-03-22 08:54 | NUR ---
ONCO/SULFIDE HEAD OPERATOR DR CATHERINE WAS CALLED RE: CRITICAL LAB. SPOKE TO INDIGO.
[2019-03-22] MEDS: GABAPENTIN 300 MG CAPSULE PO SCH (08:56)
[2019-03-22] MEDS: BACLOFEN 10 MG TABLET PO SCH ×3 (08:56→20:02)
[2019-03-22] MEDS: TAMSULOSIN HCL 0.4 MG CAP PO SCH (08:56)
[2019-03-22] MEDS: DOCUSATE SODIUM 100 MG CAPSULE PO SCH ×2 (08:56→20:02)
[2019-03-22] MEDS: ONDANSETRON HCL 4 MG/2 ML VIAL IVP PRN (09:04)
--- NOTE | 2019-03-22 09:30 | NUR ---
Medications All morning medications given as ordered. no adverse side effects noted. No vomiting noted. nausea medication given as ordered.
--- NOTE | 2019-03-22 10:59 | NUR ---
Rounds Informed patient that MRI will be done today. offered patient fluids, patient denied need. no other needs at this time.
--- NOTE | 2019-03-22 12:59 | NUR ---
MRI patient left floor via gurney for MRI in stable condition. No other needs at this time.
--- NOTE | 2019-03-22 15:35 | NUR ---
Patient back from MRI Patient returned from MRI in stable condition. patient noted with BMx1. Skin care provided, linens changed, no other needs at this time.
[2019-03-22 15:50] VITALS: BP_SYST 99
--- NOTE | 2019-03-22 16:25 | NUR ---
PICC line dressing. PICC line dressing done as ordered. Old dried blood noted. new dressing applied. No current bleeding noted.
[2019-03-22] MEDS: cefTRIAXone 2 GM IVPB PREMIX 50 ML IV SCH (17:27)
--- NOTE | 2019-03-22 18:08 | NUR ---
Closing note Patient resting in bed at this time, A/ox4, no complaints of pain. PICC line patent, intact, and infusing fluids as ordered. No adverse side effects noted. no infiltration noted. Joyce catheter in place, draining sade colored urine to gravity. On safety and aspiration precautions, HOB kept elevated, 3 estimator jewelry rails up, call light within reach. Patient in stable condition. All needs met.
--- NOTE | 2019-03-22 19:12 | NUR ---
OPENING NOTES Pt and endorsement received from day shift nurse. Pt is AAOx4, lying in bed. Family at bedside. Pt on IVF with D5,0.45NS at 70ml/hr and infusing well on left upper arm PICC. No complains of pain at this time. No signs of acute distress or SOB noted. Encouraged to use call light when needed. Safety precautions in place with 3 side rails up, wheels locked, bed alarm on and in lowest level. Call light with pt. Will continue to monitor.
[2019-03-22 20:01] VITALS: BP_SYST 165
[2019-03-22] MEDS: ENALAPRILAT DIHYDRATE 1.25 MG/ML VIAL IVP PRN (20:03)
[2019-03-22 21:20] VITALS: BP_SYST 147
--- NOTE | 2019-03-22 21:20 | NUR ---
ROUNDS All due meds given. Incontinence care rendered and turning done with SAMINA Chacon, pt tolerated well. No complains of pain and no signs of acute distress noted. Safety precautions in place and call light with pt. Will continue to monitor.
--- NOTE | 2019-03-22 23:35 | NUR ---
ROUNDS Pt is resting in bed with both eyes closed, with visible chest rise and fall with non-labored breathing noted. No complains of pain and no signs of acute distress noted. IVF infusing well. Safety precautions in place and call light with pt. Will continue to monitor.
[2019-03-23 00:31] VITALS: BP_SYST 138
--- NOTE | 2019-03-23 02:00 | NUR ---
ROUNDS Pt is resting in bed with both eyes closed, with visible chest rise and fall with non-labored breathing noted. Pt is easily arousable. No signs of acute distress or SOB noted. IVF infusing well. No needs at this time. Safety precautions in place and call light with pt. Will continue to monitor.
[2019-03-23] MEDS: HYDROCORTISONE SOD SUCC 100 MG/2 ML VIAL IVP SCH ×3 (05:11→21:19)
--- NOTE | 2019-03-23 05:20 | NUR ---
ROUNDS Bed bath done with SAMINA Chacon, pt tolerated well. No signs of acute distress noted. No complains of pain. IVF infusing well. Safety precautions in place and call light with pt. Will continue to monitor.
--- NOTE | 2019-03-23 06:52 | NUR ---
CLOSING NOTES Pt and resting in bed with both eyes closed, with visible chest rise and fall with non-labored breathing noted. IVF infusing well. Joyce bag kept hanged below bladder level. No complains of pain at this time. No signs of acute distress or SOB noted. All needs attended throughout the shift. Safety precautions maintained with 3 side rails up, wheels locked, bed alarm on and in lowest level. Call light with pt. Will endorse to day shift nurse.
[2019-03-23 07:14] LABS: BASOPHILS % (AUTO) 0.2 % (0.0-2.0); EOSINOPHILS % (AUTO) 0.6 % (0.0-4.0); HEMATOCRIT 26.7 % (36-54); HEMOGLOBIN 9.1 g/dL (14.0-18.0); LYMPHOCYTES # (AUTO) 0.5 K/uL (1.0-5.5); LYMPHOCYTES % (AUTO) 9.5 % (20.5-51.5); MEAN CORPUSCULAR HEMOGLOBIN 31 pg (27-31); MEAN CORPUSCULAR HGB CONC 34 % (32-36); MEAN CORPUSCULAR VOLUME 90 fL (79.0-98.0); MONOCYTES # (AUTO) 0.3 K/uL (0.0-1.0); MONOCYTES % (AUTO) 5.5 % (1.7-9.3); NEUTROPHILS # (AUTO) 4.8 K/uL (1.8-7.7); NEUTROPHILS % (AUTO) 84.2 % (40.0-70.0); RED BLOOD CELL COUNT(AUTO) 2.98 MIL/uL (4.2-6.2); WHITE BLOOD COUNT (AUTO) 5.7 K/uL (4.8-10.8)
[2019-03-23 07:50] LABS: PLATELET COUNT (AUTO) 61 K/uL (130-430)
--- NOTE | 2019-03-23 07:50 | NUR ---
INITIAL NOTE RECEIVED PT IN BED, NO S/S OF DISTRESS OR SOB NOTED, PT HAS NO C/O PAIN AT THIS TIME, PT IN STABLE CONDITION, PT RESTING COMFORTABLY, PT AAOX4, VERBAL. PT HAS A PICC LINE ON RIGHT UPPER ARM, BOTH PORTS FLUSH AND HAVE BLOOD RETURN, DRESSING CLEAN AND DRY AND NON OCCLUDED, RUNNING IV FLUIDS ORDERED. BED AT LOWEST POSITION, CALL LIGHT WITHIN REACH, WILL CONTINUE TO MONITOR PT FOR ANY CHANGES, FALL AND SAFETY PRECAUTIONS IN PLACE. F/C DRAINING VIA GRAVITY. PT ON AN AIR MATTRESS. PT ON OXYGEN 2 LITERS VIA NASAL CANNULA, SATURATION OF 100%.
[2019-03-23 07:58] LABS: ALBUMIN 2.2 g/dL (3.4-4.8); CALCIUM 7.4 mg/dL (8.4-11.0); CREATININE 0.47 mg/dL (0.55-1.30); POTASSIUM 3.4 mmol/L (3.5-5.1); TOTAL BILIRUBIN 0.8 mg/dL (0.0-1.0)
[2019-03-23 08:30] VITALS: BP_SYST 149
[2019-03-23] MEDS: MINERAL OIL 30 ML UDC PO SCH ×3 (08:54→21:20)
[2019-03-23] MEDS: GABAPENTIN 300 MG CAPSULE PO SCH (08:54)
[2019-03-23] MEDS: POLYETHYLENE GLYCOL 3350, 17 GM/ POWD.PACK PO SCH (08:54)
[2019-03-23] MEDS: DOCUSATE SODIUM 100 MG CAPSULE PO SCH ×2 (08:55→21:18)
[2019-03-23] MEDS: TAMSULOSIN HCL 0.4 MG CAP PO SCH (08:55)
[2019-03-23] MEDS: BACLOFEN 10 MG TABLET PO SCH ×3 (08:55→21:18)
--- NOTE | 2019-03-23 09:30 | NUR ---
ROUNDS DR AMY WANG, AWARE OF PATIENT'S CONDITION, NEW ORDERS GIVEN FOR D/C TO SNF AND FOR PT TO GO WITHOUT F/C AND PICC LINE VIA BLS.
--- NOTE | 2019-03-23 09:40 | NUR ---
MD ROUNDS DR SUKHWINDER WANG, AWARE OF PATIENT'S CONDITION.
[2019-03-23 09:49] LABS: INR 1.1 (0.80-1.20); PROTHROMBIN TIME 10.6 SECS (9.5-12.5)
--- NOTE | 2019-03-23 10:30 | NUR ---
ROUNDS PT IN BED, NO S/S OF DISTRESS OR SOB NOTED, PT HAS NO C/O PAIN AT THIS TIME. PT IN STABLE CONDITION. PT RESTING COMFORTABLY, WILL CONTINUE TO MONITOR PT FOR ANY CHANGES.
[2019-03-23 11:24] VITALS: BP_SYST 141
[2019-03-23] MEDS: D5/0.45 NS 1,000 ML IV SCH (14:21)
[2019-03-23 15:03] VITALS: BP_SYST 150; BP_SYST 157
[2019-03-23] MEDS ORDERED: POTASSIUM CHLORIDE 20 MEQ TAB.PRT.SR PO ONE (15:15)
--- NOTE | 2019-03-23 16:10 | NUR ---
ROUNDS PT IN BED, NO S/S OF DISTRESS OR SOB NOTED, PT HAS NO C/O PAIN AT THIS TIME. PT IN STABLE CONDITION. PT RESTING COMFORTABLY, WILL CONTINUE TO MONITOR PT FOR ANY CHANGES. FAMILY AT BEDSIDE.
[2019-03-23] MEDS: cefTRIAXone 2 GM IVPB PREMIX 50 ML IV SCH (17:22)
--- NOTE | 2019-03-23 18:19 | NUR ---
CLOSING NOTE PT IN BED, NO S/S OF DISTRESS OR SOB NOTED, PT HAS NO C/O PAIN AT THIS TIME, PT IN STABLE CONDITION, PT RESTING COMFORTABLY, PT AAOX4, VERBAL. PT HAS A PICC LINE ON RIGHT UPPER ARM, RUNNING IV FLUIDS ORDERED. BED AT LOWEST POSITION, CALL LIGHT WITHIN REACH, WILL ENDORSE CARE OF PT TO INCOMING NURSE, FALL AND SAFETY PRECAUTIONS IN PLACE. F/C DRAINING VIA GRAVITY. PT ON AN AIR MATTRESS. PT ON ROOM AIR, SATURATION OF 96%.
[2019-03-23 20:00] VITALS: BP_SYST 148
--- NOTE | 2019-03-23 20:00 | NUR ---
RECEIVED PT IN BED V/S AND ASSESSMENT DONE SAME STABLE ,PM CARE GIVEN MADE COMFORTABLE ,REPOSITIONED FROM SISDE TO SIDE ,NO C/O OF ANY PAIN OR DISCOMFORT NOTED ,PT REMAINS VERY EDEMATOUS ,APONTE IN PLACE DRAINING CLEAR YELLOW URINE.IV FLUID INFUSING WELL..
[2019-03-24] VITALS: BP_SYST 140
--- NOTE | 2019-03-24 | NUR ---
REPOSITIONED MADE COMFORTABLE
[2019-03-24 04:00] VITALS: BP_SYST 148
--- NOTE | 2019-03-24 04:00 | NUR ---
PT REPOSITIONED MADE COMFORTABLE NO DISTRESS NOTED
--- NOTE | 2019-03-24 04:00 | NUR ---
PT RESTING IN NO DISTRES AT THIS
[2019-03-24] MEDS: HYDROCORTISONE SOD SUCC 100 MG/2 ML VIAL IVP SCH ×2 (05:48→15:27)
--- NOTE | 2019-03-24 08:00 | NUR ---
initial notes rec patient awake alert with a picc line l upper arm. no infiltration noted. denies oain at this time. bed to the lowest position and s side rails up and locked. call light withn reached and knows when to call for assistance.
[2019-03-24] MEDS ORDERED: POTASSIUM CHLORIDE 10 MEQ TAB.PRT.SR PO ONE (09:00)
[2019-03-24] MEDS: POLYETHYLENE GLYCOL 3350, 17 GM/ POWD.PACK PO SCH (09:00)
[2019-03-24] MEDS ORDERED: FUROSEMIDE 40 MG/4 ML VIAL IVP ONE (09:00)
[2019-03-24] MEDS: DOCUSATE SODIUM 100 MG CAPSULE PO SCH (09:47)
[2019-03-24] MEDS: TAMSULOSIN HCL 0.4 MG CAP PO SCH (09:47)
[2019-03-24] MEDS: BACLOFEN 10 MG TABLET PO SCH ×2 (09:47→15:26)
[2019-03-24] MEDS: MINERAL OIL 30 ML UDC PO SCH ×2 (09:47→15:00)
[2019-03-24] MEDS: GABAPENTIN 300 MG CAPSULE PO SCH (09:48)
[2019-03-24] MEDS: D5/0.45 NS 1,000 ML IV SCH (10:21)
--- NOTE | 2019-03-24 10:28 | NUR ---
SS NOTE: COPPER PLATE PRINTER received d/c order for patient to be transferred to SNF. COPPER PLATE PRINTER phoned [facility] @ [phone] and spoke with Zhang who states that Chase Hsu @ [phone] is the Inpt CM this weekend. COPPER PLATE PRINTER phoned Ms. Hsu and left a message. COPPER PLATE PRINTER also phoned Mohini to call back. Information given to Lu Esposito RN. Addendum: 03/24/19 at 1220 by Ana Vences COPPER PLATE PRINTER COPPER PLATE PRINTER received a call from Chase Hsu stating that Deana Vaughan is the CM for [facility] (p [phone]). Per Deana she is not aware of the d/c order, but will call Dr. Curran.
--- NOTE | 2019-03-24 10:30 | NUR ---
rounds due meds were taken slowly or 1 at a time to prevent nausea and adi well. no sob noted.
[2019-03-24 12:18] VITALS: BP_SYST 164
--- NOTE | 2019-03-24 12:42 | NUR ---
rounds was pulled up at bedside to eat lunch and adi well. denies pain. family in the room.
--- NOTE | 2019-03-24 15:31 | NUR ---
LATE ENTRY: CALLED HCP AFTER HOURS TO REQUEST FOR SNF PLACEMENT. SPOKE TO VERONIQUE VASQUEZ, WHO ASKED ME TO FAX CLINICALS, FACE SHEET, AND ORDER.
--- NOTE | 2019-03-24 15:33 | NUR ---
[facility] RESPONDED TO THE SNF PLACEMENT, RM 114 A. WILL ARRANGE TRANSPORT FOR 1N 1800 SEED SORTER
--- NOTE | 2019-03-24 15:41 | NUR ---
CONFIRMED WITH HCP AFTER HOURS. SPOKE TO JANI WHO IS AWARE OF [facility]'S ACCEPTANCE OF THE PT. ARRANGED WITH [facility] FOR A 2000 ASSEMBLER ERECTOR, GOING TO 114 A. SPOKE TO CHITRA
--- NOTE | 2019-03-24 16:11 | NUR ---
Nutrition F/U RD reviewed pt's current EMR including diet Hx, physician notes, nursing notes, pertinent labs/meds/procedures, care trends, and care activity. Admitting Diagnosis: Septic shock Medical History Comment: Levophed weaned off, s/p Vit K repletion, oncology to follow up for metastatic prostate cancer per MD note. Current Diet Order/Nutrition Support: Regular diet, Ensure Clear TID x2 days Subjective Information: RD placed phone call to pt's room -- daughter picked up and answered RD verbal interview questions. She stated that pt's appetite has been pretty good today and that pt ate 100% of lunch today. Pt also sometimes drinks the Ensure Clear (apple flavor) at meal times. Pt would like to continue current ONS. RD encouraged daughter to continue to promote adequate nutrition. Per EMR, PO intake records indicated 38% average x6 meals -- improved since last RD F/U 03/21/19. Per EMR, awaiting SNF bed. Estimated Energy Expenditure (kcals/day) 7828-8141 kcal/day (30-35 kcal/kg ABW for sepsis) Estimated Protein Required (g/day) 95-126 gm/day (1.5-2 gm/kg ABW for sepsis) Estimated Fluid Required (l/day) 1.9-2.2 L/day (1 mL/kcal/day maintenance) Problem/Etiology/Signs/Symptoms Increased nutritional needs related to catabolic condition as evidenced by estimated energy needs for sepsis. *ongoing* Expected Outcomes/Goals - Monitor appetite and PO intake w/ goals of pt meeting at least 65% of estimated energy needs, labs trending WNL, normal GI function, and wt maintenance/ skin integrity. Dietitian Recommendations * Recommend regular diet w/ Ensure Clear TID (ONS provides 720 kcal/day, 24 gm protein/day) * Encourage increase PO intakes Follow Up Moderate Risk: F/U in 3-5 days
--- NOTE | 2019-03-24 16:14 | NUR ---
Dietitian Recommendations * Recommend regular diet w/ Ensure Clear TID (ONS provides 720 kcal/day, 24 gm protein/day) * Encourage increase PO intakes LP, RD Please refer to Nutrition F/U for details.
[2019-03-24 16:23] VITALS: BP_SYST 152
[2019-03-24] MEDS: cefTRIAXone 2 GM IVPB PREMIX 50 ML IV SCH (17:59)
--- NOTE | 2019-03-24 19:45 | NUR ---
PICC LINE D/C TO LEFT UPPER ARM PATIENT AWAKE ALERT , FAMILY @ THE BEDSIDE NO ACTIVE BLEEDING SITE CLEAN DSD APPLIED , PATIENT TOLERATE .
[2019-03-24 19:46] VITALS: BP_SYST 152
--- NOTE | 2019-03-24 19:59 | NUR ---
closing notes report given to juliana at [facility]. awaiting for ambulance to come and warehouse order picker patient. endorsed to take out picc line as per dr alexander joe. no sob noted.
--- NOTE | 2019-03-24 21:00 | NUR ---
[facility] HERE FOR TRANSFER TO [facility] , SBAR REPORT GIVEN TO EDWARD FOR ROOM 114 BED A , ORDERS CARRIED OUT .
== END 2019-03-24 21:25 | DRG 871 ==
LOC: SED 08:05 → SIC 10:59 → SMU 03-20 15:22
PROVIDERS: ADMIT Internal Medicine Hospice and Palliative Medicine; ATTEND Internal Medicine Hospice and Palliative Medicine
PROC: 02HV33Z Insertion of Infusion Device into Superior Vena Cava, Percutaneous Approach (ICD-10-PCS; 2019-03-15)
PROC: B548ZZA Ultrasonography of Superior Vena Cava, Guidance (ICD-10-PCS; 2019-03-15)
PROC: 5A1935Z Respiratory Ventilation, Less than 24 Consecutive Hours (ICD-10-PCS; 2019-03-15)
PROC: 30233N1 Transfusion of Nonautologous Red Blood Cells into Peripheral Vein, Percutaneous Approach (ICD-10-PCS; principal; 2019-03-17)
PROC: 30233K1 Transfusion of Nonautologous Frozen Plasma into Peripheral Vein, Percutaneous Approach (ICD-10-PCS; 2019-03-17)
PROC: 30233R1 Transfusion of Nonautologous Platelets into Peripheral Vein, Percutaneous Approach (ICD-10-PCS; 2019-03-18)
PROC: 30233M1 Transfusion of Nonautologous Plasma Cryoprecipitate into Peripheral Vein, Percutaneous Approach (ICD-10-PCS; 2019-03-18)
DX: A41.9 Sepsis, unspecified organism (principal); R65.21 Severe sepsis with septic shock; D65 Disseminated intravascular coagulation [defibrination syndrome]; J96.90 Respiratory failure, unspecified, unspecified whether with hypoxia or hypercapnia; N39.0 Urinary tract infection, site not specified; C79.51 Secondary malignant neoplasm of bone; C79.49 Secondary malignant neoplasm of other parts of nervous system; E87.1 Hypo-osmolality and hyponatremia; K56.7 Ileus, unspecified; C61 Malignant neoplasm of prostate; B96.5 Pseudomonas (aeruginosa) (mallei) (pseudomallei) as the cause of diseases classified elsewhere; R25.2 Cramp and spasm; B96.89 Other specified bacterial agents as the cause of diseases classified elsewhere; K59.09 Other constipation; D64.9 Anemia, unspecified; I10 Essential (primary) hypertension; Z87.440 Personal history of urinary (tract) infections; Z90.49 Acquired absence of other specified parts of digestive tract; Z86.2 Personal history of diseases of the blood and blood-forming organs and certain disorders involving the immune mechanism; Z88.1 Allergy status to other antibiotic agents; Z92.21 Personal history of antineoplastic chemotherapy; Z79.899 Other long term (current) drug therapy; Z92.3 Personal history of irradiation
CPT/HCPCS: 36415; 71045; 72131; 72146; 72148; 74018; 80053; 80202-TC; 81000-TC; 82607; 83010; 83540-TC; 83550-TC; 83605; 83615-TC; 83690-TC; 83735-TC; 84153; 84443-TC; 84484; 85007; 85025; 85027; 85044-TC; 85379; 85384-TC; 85610-TC; 85730-TC; 86886; 86900; 86901; 86920; 87040-TC; 87081; 87086; 87186-TC; 93005; 93306; 96361; 96365; 96375; 99291; C1751; J0360; J0696; J1720; J1940; J2270; J2405; J2543; J2765; J3010; J3370; J3430; J3480; J7030; J7040; J7042; J7050; J7060; P9012; P9021; P9034; P9059